=== PATIENT | male | born 2000 | race African-American/Black ===

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

== ENCOUNTER 2022-01-15 17:23 | Emergency (ER) | payer OTHER ==
[2022-01-15 17:47] VITALS: PULSE 84; RESP 16; TEMP 98.9; BMI 23.1
[2022-01-15 18:21] VITALS: BP 102/53
[2022-01-15] MEDS ORDERED: NAPROXEN 500 MG TABLET PO ONE (19:23)
[2022-01-15] MEDS ORDERED: NAPROXEN 500 MG TABLET ONE (19:25)
== END 2022-01-15 20:20 | disposition home or self-care (01) ==
LOC: FER 17:23
DX: S89.91XA Unspecified injury of right lower leg, initial encounter (principal); Y93.67 Activity, basketball
CPT/HCPCS: 73562-TC-RT-FY; 99283-25

== ENCOUNTER 2022-01-24 01:09 | Emergency (ER) | payer OTHER ==
[2022-01-24 01:19] VITALS: BP 120/50; PULSE 99; RESP 16; TEMP 97.8; BMI 23.1
[2022-01-24] MEDS ORDERED: NAPROXEN 500 MG TABLET PO ONE (01:26)
[2022-01-24] MEDS ORDERED: NAPROXEN 500 MG TABLET ONE (01:31)
== END 2022-01-24 02:56 | disposition home or self-care (01) ==
LOC: FER 01:09
DX: S83.91XA Sprain of unspecified site of right knee, initial encounter (principal); X50.0XXA Overexertion from strenuous movement or load, initial encounter; Y93.67 Activity, basketball
CPT/HCPCS: 73560-TC-RT-FY; 99283-25

== ENCOUNTER 2022-02-09 15:25 | Emergency (ER) | payer OTHER ==
[2022-02-09 16:34] VITALS: BP 127/64; PULSE 57; RESP 18; TEMP 98.2; BMI 23.1
[2022-02-09] MEDS ORDERED: SODIUM CHLORIDE 1,000 ML IV ONE (16:59)
[2022-02-09] MEDS ORDERED: ACETAMINOPHEN 1000 MG/100 ML BAG IVPB ONE (17:00)
[2022-02-09] MEDS ORDERED: ACETAMINOPHEN 325 MG TABLET (FP) PO ONE (17:09)
[2022-02-09] MEDS ORDERED: ACETAMINOPHEN 325 MG TABLET (FP) ONE (17:17)
== END 2022-02-09 18:10 | disposition home or self-care (01) ==
LOC: FER 15:25
PROC: 3E0333Z Introduction of Anti-inflammatory into Peripheral Vein, Percutaneous Approach (ICD-10-PCS; principal; 2022-02-09)
DX: M54.50 Low back pain, unspecified (principal); R07.9 Chest pain, unspecified
CPT/HCPCS: 0241U-QW; 71046-TC-FY; 93005; 99285-25

== ENCOUNTER 2022-02-10 08:04 | Emergency (ER) | payer OTHER ==
[2022-02-10] MEDS ORDERED: ACETAMINOPHEN 325 MG TABLET (FP) PO ONE (08:26)
[2022-02-10] MEDS ORDERED: IBUPROFEN 600 MG TABLET (FP) PO ONE ×2 (08:26→08:39)
[2022-02-10 08:32] VITALS: BP 107/70; PULSE 60; RESP 20; TEMP 98.8; BMI 21.8
[2022-02-10] MEDS ORDERED: ACETAMINOPHEN 325 MG TABLET (FP) ONE (08:39)
[2022-02-10 09:17] LABS: HEMATOCRIT 40.2 % (35.4-49); MCH 25.5 pg (25.7-33.7); MCHC 32.3 g/dl (32.0-35.9); MEAN CELL VOLUME 78.9 fl (80-96); MEAN PLT VOLUME 9.2 fl (7.5-11.1); PLATELET COUNT 321.9 10^3/uL (134-434); RBC 5.09 10^6/uL (4.00-5.60); WHITE BLOOD COUNT 15.2 10^3/uL (4.0-10.8)
[2022-02-10 11:06] LABS: ANISOCYTOSIS 2+; MACROCYTOSIS 2+; TARGET CELLS 3+
== END 2022-02-10 10:38 | disposition home or self-care (01) ==
LOC: FER 08:04
DX: U07.1 COVID-19 (principal); I44.0 Atrioventricular block, first degree
CPT/HCPCS: 36415; 71046-TC-FY; 84484; 85027; 85045; 86618; 93005; 99285-25

== ENCOUNTER 2022-05-11 17:34 | Emergency (ER) | payer OTHER ==
[2022-05-11 17:50] VITALS: BP 124/76; PULSE 90; RESP 18; TEMP 98.2; BMI 23.7
== END 2022-05-11 18:25 | disposition home or self-care (01) ==
LOC: FER 17:34
PROC: 0HQFXZZ Repair Right Hand Skin, External Approach (ICD-10-PCS; principal; 2022-05-11)
DX: S61.216A Laceration without foreign body of right little finger without damage to nail, initial encounter (principal); W26.0XXA Contact with knife, initial encounter
CPT/HCPCS: 99282-25